=== PATIENT | male | born 1955 | race Caucasian/White ===

== ENCOUNTER 2019-12-26 10:00 | Outpatient (RCR) | payer OTHER, SELFPAY ==
--- NOTE | 2019-09-28 09:14 | STOPEVAL ---
Thank you for referring this patient to [facility]. Please review, sign, date and return this plan of care VLAD. I agree with and certify that the following plan of care is medically necessary. Referring Physician Date Admitting Provider: Attending Provider: PHYSICIAN NOT ON STAFF Referring Provider: * Outpatient Evaluation Start: 09/27/19 09:21 Freq: Status: Active Protocol: Document 09/27/19 09:21 SATNAM (Rec: 09/27/19 10:55 SATNAM [email or web address]) Therapy Assessment Status Assessment Status Assessment Status Evaluation Outpatient Past Medical History Neurological History Hx Cerebrovascular Accident (CVA) Yes: March 28, 2019 Pain Assessment Timing of Pain Assessment Timing of Pain Assessment Assessment Self Report Self Report Pain Level 0 Pain Scale Pain Scale Used Numeric (1 - 10) Pain Score Pain Score 0: Self Report Language Evaluation Auditory Comprehension Simple Yes/No Questions (% Accuracy (0- 100 100)) Moderate Yes/No Questions (% Accuracy (0 100 -100)) Complex Yes/No Questions (% Accuracy (0- 80 100)) Auditory Comprehension of Two-Step 100 Directives (% Accuracy (0-100)) Auditory Comprehension of Three-Step 100 Directives (% Accuracy (0-100)) Auditory Comprehension of Complex 100 Directives (% Accuracy (0-100)) Auditory Comprehension of Moderate 60 Paragraphs (% Accuracy (0-100)) Response Latency No Impairments Overall Auditory Comprehension Ability Mild Deficits Reading Comprehension Name Recognition Yes Letter Comprehension (% Accuracy (0-100) 100 ) Single Word Comprehension (% Accuracy (0 100 -100)) Comprehension: 3-4 Words (% Accuracy (0- 100 100)) Comprehension: 5-7 Words (% Accuracy (0- 80 100)) Comprehension: 8-10 Words (% Accuracy (0 100 -100)) Comprehension of Complex Statements (% 75 Accuracy (0-100)) Comprehension of Simple Paragraphs (% 100 Accuracy (0-100)) Comprehension of Moderate Paragraphs (% 75 Accuracy (0-100)) Comprehension of Complex Paragraphs (% 100 Accuracy (0-100)) Comprehension of Functional Reading Mild Deficits Materials Response Latency Mild Deficits Factors Limiting Reading Comprehension Aphasia Overall Reading Comprehension Ability Mild Deficits Verbal Expression Automatic Speech Ability mild/mod [place] Speech Moderate Deficits Single Word Imitation (% Accuracy (0-100 75 )) Phrase Imitation (% Accuracy (0-100)) 50 Sentence Imitation (% Accuracy (0-100)
--- NOTE | 2019-09-28 09:15 | STOPEVAL ---
Thank you for referring this patient to [facility]. Speech Therapy is recommended 3x week 4 to focus on receptive and expressive language deficits. Please review, sign, date and return this plan of care VLAD. I agree with and certify that the following plan of care is medically necessary. Referring Physician Date Attending Provider: PHYSICIAN NOT ON STAFF Referring Provider: MILAN Outpatient Evaluation Start: 09/27/19 09:21 Freq: Status: Active Protocol: Document 09/27/19 09:21 SATNAM (Rec: 09/27/19 10:55 [email or web address]) Therapy Assessment Status Assessment Status Assessment Status Evaluation Outpatient Past Medical History Neurological History Hx Cerebrovascular Accident (CVA) Yes: March 28, 2019 Pain Assessment Timing of Pain Assessment Timing of Pain Assessment Assessment Self Report Self Report Pain Level 0 Pain Scale Pain Scale Used Numeric (1 - 10) Pain Score Pain Score 0: Self Report Language Evaluation Auditory Comprehension Simple Yes/No Questions (% Accuracy (0- 100 100)) Moderate Yes/No Questions (% Accuracy (0 100 -100)) Complex Yes/No Questions (% Accuracy (0- 80 100)) Auditory Comprehension of Two-Step 100 Directives (% Accuracy (0-100)) Auditory Comprehension of Three-Step 100 Directives (% Accuracy (0-100)) Auditory Comprehension of Complex 100 Directives (% Accuracy (0-100)) Auditory Comprehension of Moderate 60 Paragraphs (% Accuracy (0-100)) Response Latency No Impairments Overall Auditory Comprehension Ability Mild Deficits Reading Comprehension Name Recognition Yes Letter Comprehension (% Accuracy (0-100) 100 ) Single Word Comprehension (% Accuracy (0 100 -100)) Comprehension: 3-4 Words (% Accuracy (0- 100 100)) Comprehension: 5-7 Words (% Accuracy (0- 80 100)) Comprehension: 8-10 Words (% Accuracy (0 100 -100)) Comprehension of Complex Statements (% 75 Accuracy (0-100)) Comprehension of Simple Paragraphs (% 100 Accuracy (0-100)) Comprehension of Moderate Paragraphs (% 75 Accuracy (0-100)) Comprehension of Complex Paragraphs (% 100 Accuracy (0-100)) Comprehension of Functional Reading Mild Deficits Materials Response Latency Mild Deficits Factors Limiting Reading Comprehension Aphasia Overall Reading Comprehension Ability Mild Deficits Verbal Expression Automatic Speech Ability mild/mod [place] Speech Moderate Deficits Single Word Imitation (% Accuracy (0-100 75 )) Phrase Imitation (
--- NOTE | 2019-10-03 09:00 | PCSTNOTE ---
Patient called & cancelled scheduled appointment this date.
--- NOTE | 2019-10-04 15:19 | PCSTNOTE ---
Patient called & cancelled scheduled appointment this date.
--- NOTE | 2019-10-28 10:27 | STOPEVAL ---
SPEECH THERAPY PLAN OF CARE/PROGRESS REPORT: Thank you for referring this patient to [facility]. Continue Outpatient Speech Therapy to focus on receptive and expressive communication Please review, sign, date and return this plan of care VLAD. I agree with and certify that the following plan of care is medically necessary. Referring Physician Date Admitting Provider: Attending Provider: PHYSICIAN NOT ON STAFF Referring Provider: MILAN Outpatient RE Evaluation Start: 09/27/19 09:21 Freq: Status: Active Protocol: Document 10/27/19 10:10 SATNAM (Rec: 10/27/19 10:58 SATNAM [email or web address]) Therapy Assessment Status Assessment Status Assessment Status Re-evaluation Outpatient Past Medical History Neurological History Hx Cerebrovascular Accident (CVA) Yes: March 28, 2019 Pain Assessment Timing of Pain Assessment Timing of Pain Assessment Pre-Treatment Self Report Self Report Pain Level 0 Pain Scale Pain Scale Used Numeric (1 - 10) Pain Score Pain Score 0: Self Report Language Evaluation Auditory Comprehension Complex Yes/No Questions (% Accuracy (0- 90 100)) Auditory Comprehension of Moderate 40 Paragraphs (% Accuracy (0-100)) Response Latency Mild Deficits Factors Limiting Auditory Comprehension Aphasia Overall Auditory Comprehension Ability Mild Deficits Reading Comprehension Comprehension of Complex Statements (% 100 Accuracy (0-100)) Comprehension of Functional Reading Mild Deficits Materials Reading Comprehension Comments requires multiple repetitions & cueing during functional reading tasks Overall Reading Comprehension Ability Mild Deficits Verbal Expression Open Ended Cued Speech (% Accuracy (0- 100 100)) WH Questions (% Accuracy (0-100)) 100 Confrontational Naming (% Accuracy (0- 100 100)) Sentence Formation Given a Stimulus Word 60 (% Accuracy (0-100)) Connected Speech mild/mod Response Latency Mild Deficits Factors Limiting Verbal Function Aphasia,Apraxia Overall Verbal Expression Ability mild/mod Comments Related to Verbal Expression struggle behaviors at times; good formation with nouns but decreased with other parts of speech Written Expression Single Word Dictation (% Accuracy (0-100 71 )) Written Confrontational Naming 80 Phrase Production 63 Response Latency Mild Deficits Factors Limiting Written Function Aphasia Overall Written Expression Ability Mild Deficits Comments Related to Written Expression issues with spelling ST Clinical Summary Clinical Summ
--- NOTE | 2019-11-01 10:27 | PCSTNOTE ---
Patient called & cancelled scheduled appointment this date.
--- NOTE | 2019-11-24 14:06 | STOPEVAL ---
Addendum entered by JOHN Whalen 11/24/19 14:12: disregard current note; wrong patient. Original Note: SPEECH THERAPY PROGRESS REPORT AND POC UPDATE: Thank you for referring this patient to [facility]. Pt has completed 22 speech therapy treatment sessions. Pt continues to exhibit improvement and achieve goals. Prognosis for further improvement is good. Further ST is warranted/recommended x2 week 4. Please review, sign, date and return this plan of care VLAD. I agree with and certify that the following plan of care is medically necessary. Referring Physician Date Admitting Provider: Attending Provider: PHYSICIAN NOT ON STAFF Referring Provider: *ST Outpatient Evaluation Start: 09/27/19 09:21 Freq: Status: Active Protocol: Document 11/24/19 10:06 SATNAM (Rec: 11/24/19 11:05 SATNAM [email or web address]) Therapy Assessment Status Assessment Status Assessment Status Re-evaluation Outpatient Past Medical History Neurological History Hx Cerebrovascular Accident (CVA) Yes: March 28, 2019 Pain Assessment Timing of Pain Assessment Timing of Pain Assessment Assessment Self Report Self Report Pain Level 0 Pain Scale Pain Scale Used Numeric (1 - 10) Pain Score Pain Score 0: Self Report Language Evaluation Auditory Comprehension Auditory Comprehension of Moderate 73 Paragraphs (% Accuracy (0-100)) Additional Auditory Comprehension progress in auditory Comments comprehension fluctuates; Reading Comprehension Comprehension of Functional Reading [facility] Materials Reading Comprehension Comments slow/delayed processing exhibited in reading comprehension tasks Response Latency Mild Deficits Overall Reading Comprehension Ability Mild Deficits Comments Related to Reading slight decline with complex Comprehension directives but improved with functional info Verbal Expression Sentence Formation Given a Stimulus Word 60 (% Accuracy (0-100)) Sentence Formation in Spontaneous 70 Conversation (% Accuracy (0-100)) Connected Speech fluctuates Response Latency mild/mod Factors Limiting Verbal Function Aphasia Overall Verbal Expression Ability mild/mod Comments Related to Verbal Expression requires min (& occasionally moderate cueing); searching behaviors & paraphasic errors exhibited; aware of errors but exhibits difficulty with self -correction; overall verbal expression ability fluctuates session to session. Written Expression Phrase Production 50% accuracy Response Laten
--- NOTE | 2019-11-24 14:12 | STOPEVAL ---
SPEECH THERAPY PROGRESS REPORT AND POC UPDATE: Thank you for referring this patient to [facility]. Pt has made progression towards goal completion albeit minimal. Pt has been feeling ill throughout this reporting period; however,it is felt that pt exhibits potential for further improvement; continued ST is recommended x2 week 4. Please review, sign, date and return this plan of care VLAD. I agree with and certify that the following plan of care is medically necessary. Referring Physician Date Admitting Provider: Attending Provider: PHYSICIAN NOT ON STAFF Referring Provider: * Outpatient Evaluation Start: 09/27/19 09:21 Freq: Status: Active Protocol: Document 11/24/19 10:06 SATNAM (Rec: 11/24/19 11:05 BECHERERT [email or web address]) Therapy Assessment Status Assessment Status Assessment Status Re-evaluation Outpatient Past Medical History Neurological History Hx Cerebrovascular Accident (CVA) Yes: March 28, 2019 Pain Assessment Timing of Pain Assessment Timing of Pain Assessment Assessment Self Report Self Report Pain Level 0 Pain Scale Pain Scale Used Numeric (1 - 10) Pain Score Pain Score 0: Self Report Language Evaluation Auditory Comprehension Auditory Comprehension of Moderate 73 Paragraphs (% Accuracy (0-100)) Additional Auditory Comprehension progress in auditory Comments comprehension fluctuates; Reading Comprehension Comprehension of Functional Reading WFL Materials Reading Comprehension Comments slow/delayed processing exhibited in reading comprehension tasks Response Latency Mild Deficits Overall Reading Comprehension Ability Mild Deficits Comments Related to Reading slight decline with complex Comprehension directives but improved with functional info Verbal Expression Sentence Formation Given a Stimulus Word 60 (% Accuracy (0-100)) Sentence Formation in Spontaneous 70 Conversation (% Accuracy (0-100)) Connected Speech fluctuates Response Latency mild/mod Factors Limiting Verbal Function Aphasia Overall Verbal Expression Ability mild/mod Comments Related to Verbal Expression requires min (& occasionally moderate cueing); searching behaviors & paraphasic errors exhibited; aware of errors but exhibits difficulty with self -correction; overall verbal expression ability fluctuates session to session. Written Expression Phrase Production 50% accuracy Response Latency Moderate Deficits Comments Related to Written Expression
--- NOTE | 2019-12-12 14:07 | PCSTNOTE ---
Patient called & cancelled scheduled appointment this date.
--- NOTE | 2019-12-21 11:57 | STOPEVAL ---
Thank you for referring this patient to [facility]. Continued Speech Therapy is recommended x2 week 4 to continue improvement in receptive and expression language skills. Please review, sign, date and return this plan of care VLAD. I agree with and certify that the following plan of care is medically necessary. Referring Physician Date Admitting Provider: Attending Provider: PHYSICIAN NOT ON STAFF Referring Provider: MILAN Outpatient RE Evaluation Start: 09/27/19 09:21 Freq: Status: Active Protocol: Document 12/21/19 11:25 SATNAM (Rec: 12/21/19 11:55 BECHERERT [email or web address]) Therapy Assessment Status Assessment Status Assessment Status Re-evaluation Outpatient Past Medical History Neurological History Hx Cerebrovascular Accident (CVA) Yes: March 28, 2019 Pain Assessment Timing of Pain Assessment Timing of Pain Assessment Re-assessment Self Report Self Report Pain Level 0 Pain Scale Pain Scale Used Numeric (1 - 10) Pain Score Pain Score 0: Self Report Language Evaluation Auditory Comprehension Moderate Yes/No Questions (% Accuracy (0 93 -100)) Response Latency Mild Deficits Factors Limiting Auditory Comprehension Aphasia Overall Auditory Comprehension Ability Mild Deficits Additional Auditory Comprehension Pt is exhibiting improvement Comments but remains within the range of having mild deficits; goal has been met. Reading Comprehension Comprehension of Complex Statements (% 83 Accuracy (0-100)) Comprehension of Functional Reading Mild Deficits Materials Response Latency Mild Deficits Factors Limiting Reading Comprehension Aphasia Overall Reading Comprehension Ability Mild Deficits Verbal Expression Sentence Formation Given a Stimulus Word 80 (% Accuracy (0-100)) Sentence Formation in Spontaneous 70 Conversation (% Accuracy (0-100)) Connected Speech fluctuates Response Latency mild/mod Overall Verbal Expression Ability mild/mod Comments Related to Verbal Expression Pt has achieved goals; however , pt continues to exhibit struggle behaviors and word retrieval impairment. Pt has achieved the goals during this direct re evaluation but inconsistency is exhibited especially with decreased attendance (from illness and spouse illness). Written Expression Functional Writing max cues are required related to spelling difficulty Response Latency
--- NOTE | 2019-12-29 16:13 | PCSTNOTE ---
This treatment is being continued on visit number [id number]. Please see documentation on both accounts to view progress. Completed interventions, outcomes, and problems have been marked as Inactive to facilitate the copying of the Care plan routine for recurring accounts.
== END 2019-12-26 23:59 | disposition home or self-care (01) ==
LOC: ANHST 10:00
PROVIDERS: PCP Internal Medicine
DX: I69.320 Aphasia following cerebral infarction (principal)
CPT/HCPCS: 92507; 92523

== ENCOUNTER 2020-02-08 09:30 | Outpatient (RCR) | payer OTHER, SELFPAY ==
--- NOTE | 2019-12-29 16:13 | PCSTNOTE ---
The treatment documented on this account is a continuation of the treatment documented on visit number [id number]. Please see documentation on both accounts to view progress. The Plan of Care has been transitioned and updated within the new V#. I have addressed and agree with the discipline specific Problems, Interventions, and Goals for the current certification period. Completed interventions, outcomes, and problems have been marked as Inactive to facilitate the copying of the Care plan routine for recurring accounts.
--- NOTE | 2019-12-29 16:21 | PCSTNOTE ---
Count of visits within ST procedures changed and not chronological on 12-29-2019. Due to change of insurance and only allowing 30 visits as of 11-09-2019, total count was adjusted and restarted at #1 as of 11-09-2019.
--- NOTE | 2020-01-18 17:37 | STOPEVAL ---
SPEECH THERAPY RE EVALUATION: Thank you for referring this patient to [facility]. Mr Loaiza continues to achieve goals and make progress. Pt meets medical necessity. Continued Speech Therapy is recommended x2 week 4. Please review, sign, date and return this plan of care VLAD. I agree with and certify that the following plan of care is medically necessary. Referring Physician Date Admitting Provider: Attending Provider: PHYSICIAN NOT ON STAFF Referring Provider: *ST Outpatient Re Evaluation Start: 12/29/19 11:31 Freq: Status: Active Protocol: Document 01/18/20 09:05 SATNAM (Rec: 01/18/20 10:00 BECHERERT [email or web address]) Therapy Assessment Status Assessment Status Assessment Status Re-evaluation Outpatient Past Medical History Neurological History Hx Cerebrovascular Accident (CVA) Yes: March 28, 2019 Pain Assessment Timing of Pain Assessment Timing of Pain Assessment Re-assessment Self Report Self Report Pain Level 0 Pain Scale Pain Scale Used Numeric (1 - 10) Pain Score Pain Score 0: Self Report Language Evaluation Reading Comprehension Comprehension of Complex Paragraphs (% 100 Accuracy (0-100)) Comprehension of Functional Reading 88% Materials Response Latency Mild Deficits Factors Limiting Reading Comprehension Aphasia Overall Reading Comprehension Ability Mild Deficits Verbal Expression Sentence Formation Given a Stimulus Word 90 (% Accuracy (0-100)) Sentence Formation in Spontaneous 60 Conversation (% Accuracy (0-100)) Connected Speech Moderate Deficits Response Latency mild/mod Factors Limiting Verbal Function Aphasia Overall Verbal Expression Ability mild/mod Comments Related to Verbal Expression sentence formation given a word: 7.0 Written Expression Phrase Production 80 Response Latency Moderate Deficits Factors Limiting Written Function Aphasia Comments Related to Written Expression occasional spelling cues; writes at a basic level; slow processing during writing tasks ST Clinical Summary Clinical Summary Clinical Summary Overall, pt has again made progress and has achieved goals in all areas, i.e. reading comprehension, verbal expression and written expression. Refer to the above for specifics of progress. At this time, it is felt that pt exhibits potential for further improvement. ST Services Indicated Ye
--- NOTE | 2020-02-14 10:06 | PCSTNOTE ---
Pt called and canceled his remaining sessions due to the [place] virus.
--- NOTE | 2020-03-12 08:14 | STOPEVAL ---
SPEECH THERAPY DISCHARGE: Thank you for referring Miguel Angel Loaiza to [facility]. 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 Through that time, Wade has made remarkable progress but exhibited occasional setbacks which were related to his health, spouses health, & business related stress. Due to Covid 19 the pt canceled all remaining sessions. It is feared that without continued treatment and compliance with HEP, Wade will suffer regression in communicative skills. Pt is being officially discharged at this time.Please review, sign, date and return this plan of care VLAD. I agree with and certify that the following plan of care is medically necessary. Referring Physician Date Admitting Provider: Attending Provider: PHYSICIAN NOT ON STAFF Referring Provider: MILAN Outpatient Discharge Start: 12/29/19 11:31 Freq: Status: Active Protocol: Document 03/12/20 07:54 SATNAM (Rec: 03/12/20 08:04 BECADOLFO [email or web address]) Therapy Assessment Status Assessment Status Assessment Status Discharge Outpatient Past Medical History Neurological History Hx Cerebrovascular Accident (CVA) Yes: March 28, 2019 Pain Assessment Timing of Pain Assessment Timing of Pain Assessment Re-assessment Self Report Self Report Pain Level 0 Pain Scale Pain Scale Used Numeric (1 - 10) Pain Score Pain Score 0: Self Report Language Evaluation Auditory Comprehension Simple Yes/No Questions (% Accuracy (0- 100 100)) Moderate Yes/No Questions (% Accuracy (0 93 -100)) Complex Yes/No Questions (% Accuracy (0- 90 100)) Auditory Comprehension of Two-Step 100 Directives (% Accuracy (0-100)) Auditory Comprehension of Three-Step 100 Directives (% Accuracy (0-100)) Auditory Comprehension of Complex 100 Directives (% Accuracy (0-100)) Auditory Comprehension of Moderate 73 Paragraphs (% Accuracy (0-100)) Response Latency Mild Deficits Factors Limiting Auditory Comprehension Aphasia Overall Auditory Comprehension Ability Mild Deficits Additional Auditory Comprehension Pt is exhibiting improvement Comments but remains within the range of having mild deficits; goal has been met. Reading Comprehension Name Recognition Yes Letter Comprehension (% Accuracy (0-100) 100 ) Single Word Comprehension (% Accuracy (0 100 -100)) Comprehension: 3-4 Words (% Accuracy (0- 100 100)) Comprehension: 5-7 Words (% Accuracy (0- 80 100)) Comprehension: 8-10 Words (% Accuracy (0 100 -100)) Comprehension of Complex Statements (% 86 Accuracy (0-100)) Comprehension of Simple Paragraphs (% 10
== END 2020-03-12 08:40 | disposition home or self-care (01) ==
LOC: ANHST 09:30
PROVIDERS: PCP Internal Medicine
DX: I69.320 Aphasia following cerebral infarction (principal)
CPT/HCPCS: 92507

== ENCOUNTER 2022-08-11 11:10 | Outpatient (CLI) | payer MEDICARE, OTHER, SELFPAY ==
[2022-08-11 20:10] LABS: Alanine Aminotransferase 23 U/L (6-50); Albumin Level 4.3 g/dL (3.5-5.1); Alkaline Phosphatase 95 U/L (38-126); Anion Gap 7 mmol/L (8-16); Aspartate Amino Transferase 42 U/L (17-59); Bilirubin,Total 0.6 mg/dL (0.2-1.3); Blood Urea Nitrogen 19 mg/dL (9-20); Calcium 9.1 mg/dL (8.4-10.2); Carbon Dioxide 30 mmol/L (22-30); Chloride 101 mmol/L (98-107); Cholesterol 142 mg/dL (0-200); Estimated Glomerular Filt Rate > 60; Glucose 99 mg/dL (65-110); HDL Direct 60 mg/dL; Potassium 4.6 mmol/L (3.4-5.0); Sodium 138 mmol/L (137-145); Triglycerides 57 mg/dL (<150)
[2022-08-11 20:24] LABS: LDL Cholesterol Direct 61 mg/dL
[2022-08-11 20:42] LABS: Prostate Specific Antigen 1.2 ng/mL (< OR = 4.0)
== END 2022-08-11 11:11 | disposition home or self-care (01) ==
PROVIDERS: PCP Family Medicine; Visit Provider Family Medicine
DX: I65.22 Occlusion and stenosis of left carotid artery (principal); I10 Essential (primary) hypertension; Z12.5 Encounter for screening for malignant neoplasm of prostate
CPT/HCPCS: 36415; 80053; 80061; 84153; G0103

== ENCOUNTER → 2022-08-20 10:54 | Outpatient (CLI) | payer MEDICARE, OTHER, SELFPAY ==
--- NOTE | ~2022-08-20 | US_ITS ---
EXAMINATION: US aorta [facility] DATE: 08/20/2022 11:09 INDICATION: Hypertension and hypercholesterolemia TECHNIQUE: Grayscale, color Doppler, and pulsed Doppler images of the aorta and common iliac arteries were obtained. COMPARISON: None. FINDINGS: Maximum vascular dimensions are as follows: Proximal aorta: 2.7 cm Mid aorta: 2.5 cm Distal aorta: 2.1 cm Right common iliac artery: 0.9 cm Left common iliac artery: 0.9 cm There is no evidence of abdominal aortic aneurysm. IMPRESSION: 1. No sonographic evidence of abdominal aortic aneurysm. Reviewed, dictated and finalized at location A.
== END ==
PROVIDERS: PCP Family Medicine; Visit Provider Family Medicine
DX: Z13.6 Encounter for screening for cardiovascular disorders (principal)
CPT/HCPCS: 76706

== ENCOUNTER → 2023-02-18 09:58 | Outpatient (CLI) | payer MEDICARE, OTHER, SELFPAY ==
--- NOTE | ~2023-02-18 | CT_ITS ---
CT Scan of the Chest without Contrast: Clinical Indication: Lung cancer screening, personal history of nicotine dependence Technique: Contiguous sections were acquired throughout the chest without intravenous contrast. Dose reduction technique was used on this scan by utilizing automated exposure control and iterative recon struction technique. The dose-length product (DLP) was 113.67 mGy-cm. Findings: There is no evidence of any significant mediastinal, hilar or axillary lymphadenopathy. The mediastin al soft tissues appear normal. There is no evidence of pleural or pericardial effusion. No pulmonary nodule identified. Scattered areas of minimal subpleural reticulation could reflect very early chronic interstitial change. Images through the upper abdomen reveal no abnormalities. Impression: Lung-RADS 1: Negative. 12 month follow-up screening CT advised. Reviewed, dictated and finalized at location . Impression: Lung-RADS 1: Negative. 12 month follow-up screening CT advised.
== END ==
PROVIDERS: PCP Family Medicine; Visit Provider Family Medicine
DX: Z12.2 Encounter for screening for malignant neoplasm of respiratory organs (principal); Z87.891 Personal history of nicotine dependence
CPT/HCPCS: 71271

== ENCOUNTER 2023-03-18 05:39 | Day surgery (SDC) | payer MEDICARE, OTHER, SELFPAY ==
[2023-03-04 15:33] VITALS: BMI 27.6
--- NOTE | 2023-03-17 20:49 | PM.HPGS ---
History of Present Illness History of Present Illness Consent: Risks, benefits, and alternatives have been discussed and questions answered. Patient agrees to proceed with procedure. Chief complaint: neoplasm screening Narrative: Miguel Angel Loaiza Jr. is a 67 year old male referred for colon cancer screening Review of Systems Review of Systems: All systems reviewed & are unremarkable except as noted in HPI and below PMFSH Past Medical History Medical History Depression as late effect of cerebrovascular accident (CVA) Essential hypertension History of hemorrhagic stroke with residual hemiparesis Family History Family History Mother Patient's mother is in good health Father Cerebrovascular accident, Onset Age: 78 Social History Social History Smoking status: Former smoker Tobacco type: cigarettes Smoking end date: 11/09/17 Alcohol intake: never Substance use: never Substance use type: does not use Lack of Transportation: No Lack of Food: Never True Current Housing: I Have Housing Concerned About Future Housing: No Difficulty Paying Gas/Electric Bills: No Difficulty Paying for Meds: No Currently Unemployed: No Difficulty w/ Childcare or Family Care: No Living arrangements: with family Spiritual care concerns: No Meds Home Medications and Allergies Home Medications Medication Instructions Recorded Confirmed Type sildenafil 100 mg tablet 100 mg PO DAILY PRN sexual 02/19/22 03/04/23 Rx activity #30 tabs lisinopril 20 mg tablet 20 mg PO DAILY #90 tabs 06/06/22 02/09/23 Rx aspirin 325 mg tablet 325 mg PO DAILY 08/11/22 02/09/23 History duloxetine 60 mg capsule,delayed 60 mg PO DAILY #90 caps 09/30/22 02/09/23 Rx release atorvastatin 80 mg tablet 80 mg PO DAILY #90 tabs 12/22/22 02/09/23 Rx amlodipine 5 mg tablet 5 mg PO DAILY #90 tabs 02/09/23 03/04/23 Rx Allergies Allergy/AdvReac Type Severity Reaction Status Date / Time bacitracin AdvReac Mild Abdominal Verified 03/18/23 13:02 Pain dexamethasone AdvReac Mild Abdominal Verified 03/18/23 13:02 [From Maxitrol (neomycin Pain sulf)] neomycin AdvReac Mild Abdominal Verified 03/18/23 13:02 [From Maxitrol (neomycin Pain sulf)] polymyxin B AdvReac Mild Abdominal Verified 03/18/23 13:02 [From Maxitrol (neomycin Pain sulf)] Exam Const: General: alert Orientation/consciousness: patient oriented x3 Resp: Auscultation: clear to auscultation bilaterally Cardio: Rhythm: regular rhythm GI: GI Palp: Yes Soft to palpation and No Tenderness to palpation present (GI) Neuro: General: patient oriented x3 Assessment and Plan Assessment and plan (1) Colon cancer screening: Code(s): Z12.11 - Encounter for screening for malignant neoplasm of colon Status: Acute Assessment and Plan: Colonoscopy with possible biopsy or polypectomy or cautery or injection of substances.
[2023-03-18 13:05] VITALS: BP 121/61; PULSE 64; RESP 18; TEMP 36.2; O2SAT 100
[2023-03-18] MEDS: LACTATED RINGERS 1,000 ML 150 ML IV CONT (13:18)
--- NOTE | 2023-03-18 13:34 | WPDANESEPPF ---
Anes - Initial Pre Proc Eval Procedure: Operation Date: 03/18/23 13:45 Proposed Procedures p Screening Colonoscopy - Lance Hinojosa MD Date/Time: 03/18/23 13:34 Surgeon: Lance Hinojosa MD Pre Op Diagnosis: neoplasm screening Patient Data Age: 67 Gender: M Height: 1.7 m Weight: 77.3 kg Last Vital Signs Temp 97.1 F L 03/18/23 13:05 Pulse 64 03/18/23 13:05 Resp 18 03/18/23 13:05 BP 121/61 03/18/23 13:05 Pulse Ox 100 03/18/23 13:05 O2 Del Method Room Air 03/18/23 13:05 Allergies Allergy/AdvReac Type Severity Reaction Status Date / Time bacitracin AdvReac Mild Abdominal Verified 03/18/23 13:02 Pain dexamethasone AdvReac Mild Abdominal Verified 03/18/23 13:02 [From Maxitrol (neomycin Pain sulf)] neomycin AdvReac Mild Abdominal Verified 03/18/23 13:02 [From Maxitrol (neomycin Pain sulf)] polymyxin B AdvReac Mild Abdominal Verified 03/18/23 13:02 [From Maxitrol (neomycin Pain sulf)] Home Medications Medication Instructions Recorded Confirmed Type sildenafil 100 mg tablet 100 mg PO DAILY PRN sexual 02/19/22 03/04/23 Rx activity #30 tabs lisinopril 20 mg tablet 20 mg PO DAILY #90 tabs 06/06/22 02/09/23 Rx aspirin 325 mg tablet 325 mg PO DAILY 08/11/22 02/09/23 History duloxetine 60 mg capsule,delayed 60 mg PO DAILY #90 caps 09/30/22 02/09/23 Rx release atorvastatin 80 mg tablet 80 mg PO DAILY #90 tabs 12/22/22 02/09/23 Rx amlodipine 5 mg tablet 5 mg PO DAILY #90 tabs 02/09/23 03/04/23 Rx Patient hx anesthesia problems: none Family hx anesthesia problems: none Results Review: All pre-operative results and documents have been reviewed as part of the pre-operative evaluation. [facility] Past Medical History Medical History Depression as late effect of cerebrovascular accident (CVA) Essential hypertension History of hemorrhagic stroke with residual hemiparesis Family History Family History Mother Patient's mother is in good health Father Cerebrovascular accident, Onset Age: 78 Social History Social History Smoking status: Former smoker Tobacco type: cigarettes Smoking end date: 11/09/17 Alcohol intake: never Substance use: never Substance use type: does not use Lack of Transportation: No Lack of Food: Never True Current Housing: I Have Housing Concerned About Future Housing: No Difficulty Paying Gas/Electric Bills: No Difficulty Paying for Meds: No Currently Unemployed: No Difficulty w/ Childcare or Family Care: No Living arrangements: with family Spiritual care concerns: No Anes - Eval Final PreProcedure Day of Procedure 03/18/23 13:34 Patient weight: normal Heart: regular rate and rhythm Lungs: clear to auscultation Airway: Mallampati scale class II Neurological: alert and oriented Last oral intake: >/= 8 hours ASA classification: III Emergent: no Anesthetic plan: proceed Anesthesia type and monitoring: general GIVS and standard monitoring Results Review: All pre-operative results and documents have been reviewed as part of the pre-operative evaluation. Informed Consent: The patient's anesthetic plan and its attendant risks and benefits were discussed with the patient/family/POA. Questions were solicited and answers provided to the satisfaction of the patient/family/POA.
[2023-03-18 13:57] VITALS: BP 96/55; PULSE 57; RESP 24; O2SAT 99
[2023-03-18 14:07] VITALS: BP 112/66; PULSE 56; RESP 20; O2SAT 100
[2023-03-18 14:17] VITALS: BP 124/76; PULSE 60; RESP 21; O2SAT 100
== END 2023-03-18 14:24 | disposition home or self-care (01) ==
PROVIDERS: PCP Family Medicine; Visit Provider Internal Medicine Gastroenterology
PROC: 0DJD8ZZ Inspection of Lower Intestinal Tract, Via Natural or Artificial Opening Endoscopic (ICD-10-PCS; CPT 45378; principal; 2023-03-18 13:45)
DX: Z12.11 Encounter for screening for malignant neoplasm of colon (principal); K57.30 Diverticulosis of large intestine without perforation or abscess without bleeding; D12.4 Benign neoplasm of descending colon; I10 Essential (primary) hypertension; I69.398 Other sequelae of cerebral infarction; F32.A Depression, unspecified; I69.359 Hemiplegia and hemiparesis following cerebral infarction affecting unspecified side; Z79.82 Long term (current) use of aspirin; Z87.891 Personal history of nicotine dependence
CPT/HCPCS: 45385; 88305; J2704; J7120

== ENCOUNTER 2024-01-20 11:04 | Outpatient (CLI) | payer MEDICARE, OTHER, SELFPAY ==
[2024-01-20 19:17] LABS: Alanine Aminotransferase 22 U/L (6-50); Albumin Level 3.7 g/dL (3.5-5.1); Alkaline Phosphatase 83 U/L (38-126); Anion Gap 2 mmol/L (8-16); Aspartate Amino Transferase 44 U/L (17-59); Bilirubin,Total 0.8 mg/dL (0.2-1.3); Blood Urea Nitrogen 18 mg/dL (9-20); Calcium 9.1 mg/dL (8.4-10.2); Carbon Dioxide 32 mmol/L (22-30); Chloride 103 mmol/L (98-107); Cholesterol 114 mg/dL (0-200); Estimated Glomerular Filt Rate > 60; Glucose 105 mg/dL (65-110); HDL Direct 41 mg/dL; Potassium 4.3 mmol/L (3.4-5.0); Sodium 137 mmol/L (137-145); Triglycerides 57 mg/dL (<150)
[2024-01-20 19:29] LABS: LDL Cholesterol Direct 68 mg/dL
[2024-01-20 19:47] LABS: Prostate Specific Antigen 1.4 ng/mL (< OR = 4.0)
== END 2024-01-20 11:05 | disposition home or self-care (01) ==
PROVIDERS: PCP Family Medicine; Visit Provider Family Medicine
DX: I10 Essential (primary) hypertension (principal); Z13.220 Encounter for screening for lipoid disorders; Z13.228 Encounter for screening for other metabolic disorders; Z12.5 Encounter for screening for malignant neoplasm of prostate
CPT/HCPCS: 36415; 80053; 80061; 84153; G0103